=== PATIENT | female | born 1990 | race Caucasian/White ===

== ENCOUNTER 2023-08-05 23:07 | Emergency (ER) | payer MEDICAID ==
[~2023-08-05] VITALS: Ht 157.5 cm; Wt 79.9 kg
[2023-08-06] LABS: BASOPHILS # (AUTO) 0.1 X10'3 (0-0.2); BASOPHILS % (AUTO) 0.6 % (0-1); EOSINOPHILS # (AUTO) 0.2 X10'3 (0-0.9); EOSINOPHILS % (AUTO) 1.3 % (0-6); HEMATOCRIT 37.1 % (35.0-45.0); HEMOGLOBIN 12.6 g/dl (12.0-16.0); LYMPHOCYTES # (AUTO) 4.2 X10'3 (1.1-4.8); LYMPHOCYTES % (AUTO) 28.4 % (21-51); MEAN CORPUSCULAR HEMOGLOBIN 27.6 PG (27.0-31.0); MEAN CORPUSCULAR HGB CONC 33.9 g/dL (33.0-36.5); MEAN CORPUSCULAR VOLUME 81.4 FL (78-98); MONOCYTES # (AUTO) 0.7 X10'3 (0-0.9); MONOCYTES % (AUTO) 4.7 % (2-12); NEUTROPHILS # (AUTO) 9.6 X10'3 (1.8-7.7); PLATELET COUNT 181 X10'3 (140-440); RED BLOOD COUNT 4.55 X10'6 (4.20-5.60); RED CELL DISTRIBUTION WIDTH 13.4 % (11.5-14.5); WHITE BLOOD COUNT 14.7 X10'3 (4.5-11.0)
[2023-08-06 00:13] LABS: ALANINE AMINOTRANSFERASE 22 U/L (12-78); ALBUMIN 3.9 G/DL (3.4-5.0); ALKALINE PHOSPHATASE 54 IU/L (46-116); ANION GAP 11 (8-16); ASPARTATE AMINO TRANSFERASE 8 U/L (10-37); BILIRUBIN,TOTAL 0.2 MG/DL (0.1-1.0); BLOOD UREA NITROGEN 13 MG/DL (7-18); CALCIUM 9.3 MG/DL (8.5-10.1); CHLORIDE 104 MMOL/L (99-107); CREATININE 0.62 MG/DL (0.40-0.90); GLUCOSE 88 MG/DL (70-104); LIPASE 26 U/L (16-77); POTASSIUM 3.8 MMOL/L (3.5-5.1); SODIUM 142 MMOL/L (135-145); TOTAL CARBON DIOXIDE 26.7 MMOL/L (24-32); TOTAL PROTEIN 7.9 G/DL (6.4-8.2); eCRCL 104 ML/MIN; eGFR > 90 ML/MIN
[2023-08-06] MEDS: morphine 4 MG/ML inj SYRINge IV ONE (00:23)
[2023-08-06] MEDS: ondansetron/PF 4mg/2ml inj IV ONE (00:23)
[2023-08-06] MEDS: normal saline 1000ml 1,000 ML IV ONE (00:27)
[2023-08-06 01:34] LABS: URINE HCG NEGATIVE (NEG)
[2023-08-06 02:57] LABS: BILIRUBIN,URINE NEGATIVE (Neg); CLARITY,URINE SLIGHTLY CLOUDY (Clear); COLOR,URINE YELLOW (Yellow); GLUCOSE, URINE NEGATIVE (Neg); KETONES,URINE NEGATIVE (Neg); LEUKOCYTE ESTERASE ,URINE NEGATIVE (Neg); NITRITES, URINE NEGATIVE (Neg); OCCULT BLOOD,URINE NEGATIVE (Neg); PROTEIN,URINE NEGATIVE (Neg); UROBILINOGEN,URINE 0.2 E.U/dL (0.2-1.0)
[2023-08-06 02:59] LABS: UA COLLECTION TYPE CLN CATCH MIDSTREAM
[2023-08-06 03:14] LABS: MUCUS STRANDS MANY /LPF (Neg); RBC,URINE NONE SEEN /HPF (0-2); SQUAMOUS EPITHELIAL CELL,UR MANY /LPF (FEW); WBC,URINE 0-4 /HPF (0-4)
[2023-08-06 03:15] LABS: BACTERIA,URINE 2+ /HPF (Neg)
[2023-08-06] MEDS ORDERED: HYDR-3965 PO ×2 (03:33→03:35)
[2023-08-06] MEDS ORDERED: LANS30TA4 PO (03:33)
[2023-08-06] MEDS ORDERED: SULF1TAB49 PO (03:35)
[2023-08-06 03:53] VITALS: BP 103/65; PULSE 82; RESP 16; TEMP 98; O2SAT 99
== END 2023-08-06 03:50 | disposition home or self-care (01) ==
LOC: ER 23:08
DX: K29.70 Gastritis, unspecified, without bleeding (principal); A09 Infectious gastroenteritis and colitis, unspecified; E86.0 Dehydration
CPT/HCPCS: 36415; 74176; 80053; 81001; 81025; 83690; 85025; 96374; 96375; 99285; J2270; J2405; J7030

== ENCOUNTER 2023-08-18 22:05 | Emergency (ER) | payer MEDICAID ==
[~2023-08-18] VITALS: Ht 157.5 cm; Wt 80.1 kg
[~2023-08-18 22:05] MED LIST: HYDR-3965 PO; LANS30TA4 PO
[2023-08-18 22:09] VITALS: BP 133/70; PULSE 87; RESP 16; TEMP 98; O2SAT 100
[2023-08-19] MEDS ORDERED: NAPR-56 PO (01:05)
[2023-08-19] MEDS ORDERED: LIDO1ADH77 TD (01:05)
[2023-08-19] MEDS ORDERED: ACET-812 PO (01:05)
[2023-08-19] MEDS: ibuprofen tablet 400 MG TABLET PO ONE (01:19)
[2023-08-19] MEDS: acetaminophen 325mg tablet PO ONE (01:20)
== END 2023-08-19 01:20 | disposition home or self-care (01) ==
LOC: ER 22:06
DX: S60.212A Contusion of left wrist, initial encounter (principal); X58.XXXA Exposure to other specified factors, initial encounter; Y93.89 Activity, other specified; Y92.89 Other specified places as the place of occurrence of the external cause; Y99.8 Other external cause status
CPT/HCPCS: 73110; 99284; A6449

== ENCOUNTER 2024-11-12 06:36 | Emergency (ER) | payer MEDICAID ==
[~2024-11-12] VITALS: Ht 157.5 cm; Wt 69.2 kg
[~2024-11-12 06:36] MED LIST changes: +ACET-812 PO; -HYDR-3965 PO; +LIDO1ADH77 TD
[2024-11-12 07:14] LABS: BASOPHILS # (AUTO) 0.1 X10'3 (0-0.2); BASOPHILS % (AUTO) 0.7 % (0-1); EOSINOPHILS # (AUTO) 0.2 X10'3 (0-0.9); EOSINOPHILS % (AUTO) 1.6 % (0-6); HEMATOCRIT 39.7 % (35.0-45.0); HEMOGLOBIN 13.3 g/dl (12.0-16.0); LYMPHOCYTES # (AUTO) 2.7 X10'3 (1.1-4.8); LYMPHOCYTES % (AUTO) 28.4 % (21-51); MEAN CORPUSCULAR HEMOGLOBIN 27.9 PG (27.0-31.0); MEAN CORPUSCULAR HGB CONC 33.6 g/dL (33.0-36.5); MEAN CORPUSCULAR VOLUME 83.1 FL (78-98); MEAN PLATELET VOLUME 7.5 FL (7.4-10.4); MONOCYTES # (AUTO) 0.5 X10'3 (0-0.9); MONOCYTES % (AUTO) 5.6 % (2-12); NEUTROPHILS % (AUTO) 63.7 % (42-75); PLATELET COUNT 187 X10'3 (140-440); RED BLOOD COUNT 4.77 X10'6 (4.20-5.60); RED CELL DISTRIBUTION WIDTH 12.8 % (11.5-14.5); WHITE BLOOD COUNT 9.4 X10'3 (4.5-11.0)
[2024-11-12 07:40] LABS: ALANINE AMINOTRANSFERASE 15 U/L (12-78); ALBUMIN 3.9 G/DL (3.4-5.0); ALBUMIN/GLOBULIN RATIO 1.1 (1.1-1.5); ALKALINE PHOSPHATASE 46 IU/L (46-116); ANION GAP 10 (8-16); ASPARTATE AMINO TRANSFERASE 15 U/L (10-37); BILIRUBIN,TOTAL 0.3 MG/DL (0.1-1.0); BLOOD UREA NITROGEN 8 MG/DL (7-18); BUN/CREATININE RATIO 10.7 (10.0-20.0); CALCIUM 8.5 MG/DL (8.5-10.1); CHLORIDE 105 MMOL/L (99-107); CREATININE 0.75 MG/DL (0.40-0.90); GLUCOSE 101 MG/DL (70-104); LIPASE 33 U/L (16-77); POTASSIUM 3.7 MMOL/L (3.5-5.1); SODIUM 141 MMOL/L (135-145); TOTAL CARBON DIOXIDE 26.1 MMOL/L (24-32); TOTAL PROTEIN 7.5 G/DL (6.4-8.2); eCRCL 85 ML/MIN; eGFR 90 ML/MIN
[2024-11-12 08:42] LABS: BETA HCG,QUANTITATIVE < 1.0 mIU/ml
--- NOTE | 2024-11-12 09:26 | Physician Documentation ---
History of Present Illness Chief Complaint: Complications Stated Complaint: COMPLICATIONS Time Seen by MD: 09:07 OK to notify your PCP?: Yes Primary Medical Doctor: NONE Source: patient, RN/MD, RN notes reviewed, old records Mode of Arrival: POV Exam Limitations: no limitations HPI 34 year old female who is and a history if ovarian cysts presents to the emergency department for complaints of complications. She states that one moth ago she tested positive on a home chary. She later reports some light spotting. She states that last night she has been having intense cramping and heavier bleeding. Of note she states that she typically has regular periods that are moderate in nature and begin on the 10th of each month. Patient denies any other associated symptoms at this time. Patient denies any other alleviating or exacerbating factors Medication Reconciliation Allergies: Coded Allergies: No Known Allergies (Unverified , 11/12/24) Scheduled Acetaminophen (Tylenol Extra Strength), 2 TABLET PO Q6H Cephalexin*Monohydrate* (Keflex*), 1 TAB PO Q8H Dicyclomine Hcl* (Bentyl*), 1 CAP PO Q8H Lansoprazole (Prevacid), 1 TAB PO DAILY Lidocaine (Lido Tre), 4 APPLIC TD BID Past Medical History Past Medical History: No Pertinent History Smoking Status: Current some day smoker Alcohol Use: None Drug Use: none Review of Systems All Other Systems at this time: Reviewed and Negative ROS As stated above in the HPI, otherwise all systems are reviewed and negative. Physical Exam Vital Signs: RN Vital Signs have been reviewed: Yes, Temperature: 97.6, Source: Temporal, Heart Rate: 91, Respiratory Rate: 15, BP: 114/74, Pulse Oximetry: 98, Weight: 69.200 Oxygen Flow Rate: 0 Pulse Oximetry Reflects: adequate oxygenation Physical Exam General: The patient is well developed, well nourished, nontoxic appearing and is in no acute distress. Skin: [place], warm and dry with no rashes. HEENT: Head was normocephalic and atraumatic. Eyes - pupils equal, round, reactive to light and accommodation. Extraocular movements were intact. Conjunctivae were nonicteric. Ears - bilateral tympanic membranes were normal. The mouth and oropharynx were clear with moist mucous membranes. There were no pharyngeal exudates or erythema. Neck: Supple and nontender. There was no jugular venous distention, lymphadenopathy, thyromegaly or masses. Chest: Clear to auscultation bilaterally without wheezes, rales or rhonchi. No accessory muscle use. No dullness to percussion. Heart: Rate regular and rhythmic. S1, S2. No murmurs. Palpation of the chest wall was normal. No rubs or thrills. Abdomen: Distended abdomen, high pitched and hyperactive bowel sounds with diffuse abdominal pain. No guarding or rebound. No hepatosplenomegaly or palpable masses. Extremities: No cyanosis, clubbing or edema. The patient moves all extremities. Pulses were equal and symmetric. Neurologic: Cranial nerves II-XII were intact. Sensation was intact to light touch throughout. Motor strength was 5/5 in all four extremities. Deep tendon reflexes were intact in both upper and lower extremities. Psychologic: The patient was oriented to person, place and time. The patient demonstrated appropriate judgement and insight. Progress Results/Orders Reviewed/noted all lab results: Yes Results/Orders Orders - GILBERTO PEREIRA MD Urinalysis, Cult If Indicated (11/12/24 06:42) Hcg, Ur Ql (11/12/24 06:42) Completed Orders - GILBERTO PEREIRA MD Cbc/Diff (11/12/24 06:42) BMP (11/12/24 06:42) Lipase (11/12/24 06:42) CMP (11/12/24 06:42) Hcg Serum Qt (11/12/24 07:06) Vital Signs 11/12/24 11/12/24 11/12/24 06:38 07:11 08:21 Temp 97.6 97.6 97.6 Pulse 109 83 91 Resp 18 14 15 B/P (MAP) 138/86 120/72 (88) 114/74 (87) Pulse Ox 99 98 98 O2 Flow Rate 0 0 Laboratory Tests Test 11/12/24 07:06 White Blood Count 9.4 Red Blood Count 4.77 Hemoglobin 13.3 Hematocrit 39.7 Mean Corpuscular Volume 83.1 Mean Corpuscular Hemoglobin 27.9 Mean Corpuscular Hemoglobin Concent 33.6 Red Cell Distribution Width 12.8 Platelet Count 187 Mean Platelet Volume 7.5 Neutrophils (%) (Auto) 63.7 Lymphocytes (%) (Auto) 28.4 Monocytes (%) (Auto) 5.6 Eosinophils (%) (Auto) 1.6 Basophils (%) (Auto) 0.7 Neutrophils # (Auto) 6.0 Lymphocytes # (Auto) 2.7 Monocytes # (Auto) 0.5 Eosinophils # (Auto) 0.2 Basophils # (Auto) 0.1 CBC Comment Sodium Level 141 Potassium Level 3.7 Chloride Level 105 Carbon Dioxide Level 26.1 Anion Gap 10 Blood Urea Nitrogen 8 Creatinine 0.75 Estimated GFR/1.73 m2 90 BUN/Creatinine Ratio 10.7 Glucose Level 101 Calcium Level 8.5 Total Bilirubin 0.3 Aspartate Amino Transf (AST/SGOT) 15 Alanine Aminotransferase (ALT/SGPT) 15 Alkaline Phosphatase 46 Total Protein 7.5 Albumin 3.9 Globulin 3.6 Albumin/Globulin Ratio 1.1 Lipase 33 HCG Beta Subunit < 1.0 Chemistry Comments Re-Evaluation Re-Evaluation : Re-Evaluation: Improved Progress Patient was seen and examined. Patient is given reassurance. The patient was negative for her hCG. CBC was reassuring without any leukocytosis without any anemia. Chemistry was also within normal limits LFTs within normal limits. Beta hCG is negative urinalysis however did show positive UTI. Patient had large occult blood leukocyte esterase was trace RBCs 50-100 WBCs 5-10 with 3+ bacteria however patient is spotting and this most likely is more of a contaminant from vaginal bleeding. As far as the patient's abdominal pain she was given Bentyl as well as some lactulose. Patient also received fluid boluses. Cat scan and ultrasound were negative for any acute pathology no need for a D&C Continuous engine monitor interpretation shows sinus tachycardia heart rate 100s, abnormal, my interpretation. Pulse oximetry monitor interpretation shows normal oxygenation 99% room air, normal, my interpretation. EKG/XRAY/CT/US/VASC/MRI CT : Impression Exam: CT CT ABDOMEN PELVIS W/ IV CONTRAST History: ABD PAIN TECHNIQUE: Multiple contiguous axial CT images of the abdomen and pelvis were obtained with intravenous contrast. The images were reformatted to generate coronal and sagittal reconstructions. 100 cc of Omnipaque 350 contrast was injected intravenously. All CT scans at this medical facility are performed using dose modulation techniques as appropriate to a performed exam including the following:Automated exposure control was utilized; adjustment of the MA and/or KV according to patient size; and use of iterative reconstruction technique. Radiation Dose Information: CT Dose: CTDI volume is 13 mGy. Dose-length product is 647 mGy*cm Comparison: CT CT ABDOMEN PELVIS on DOS: 08/06/23 FINDINGS: The liver, gallbladder, pancreas, kidneys, adrenal glands, and spleen appear within normal limits. There is no evidence of abdominal lymphadenopathy. There is no free fluid or free air. The stomach grossly appears unremarkable. The small and large bowel loops demonstrate normal caliber and distribution. The appendix is not seen in the right lower quadrant abdomen. There is moderate amount of stool in the colon. The abdominal aorta and IVC appear within normal limits. The bladder appears within normal limits the degree of distention. Uterus appears unremarkable. There is no evidence of a pelvic mass or lymphadenopathy. There is no free fluid collection. Lung bases are clear. There is no acute osseous abnormality. IMPRESSION: 1. There is no acute process in the abdomen and pelvis. 2. Moderate amount of stool in the colon. HS:Y Electronically Signed by:GENE BLANCAS MD Date & Time: 11/12/24 1122 Ultrasound : Impression INDICATION: ABD PAIN TECHNIQUE: Multiple real-time grayscale transabdominal sonographic images along with color and duplex Doppler of the uterus and ovaries were obtained. COMPARISON: None FINDINGS: The uterus measures 10.0 x 4.6 x 6.3 cm. The endometrial stripe measures 0.3 cm. Right ovary measures 2.9 x 1.9 x 2.2 cm with normal Doppler color flow Left ovary measures 2.7 x 1.5 x 1.8 cm with normal Doppler color flow IMPRESSION: 1. Grossly unremarkable pelvic ultrasound. Electronically Signed by:NELSON SALSE MD Date & Time: 11/12/24 1034 Medical Decision Making Additional info obtained from: old records Differential Dx:Considerations: Include: -Complete, - Incomplete, -Inevitable, -Missed, -Threatened, Abruptio placentae, Appendicitis, Bowel obstruction, Cholangitis, Cholelithasis, Constipation, Diverticular disease, Esophageal rupture, Esophagitis, Gastritis/PUD, Gastroenteritis, GI hemorrhage, Hernia, Hepatitis, Inflammatory BD, Ischemic bowel, Ovarian cyst/torsion, Pancreatitis, PID, Porphyria, Trauma, intraabdominal, Urinary obstruction, Urinary tract infection, Urolithiasis, Other Departure Time of Disposition: 12:59 Disposition: 01 HOME / SELF CARE / HOMELESS Impression: Primary Impression: Abdominal pain Qualified Codes: R10.30 - Lower abdominal pain, unspecified Additional Impressions: UTI (urinary tract infection) Qualified Codes: N30.01 - Acute cystitis with hematuria Constipation Qualified Codes: K59.00 - Constipation, unspecified Condition: Stable Discharge Instructions: Urinary Tract Infection, Adult, [id number] Referrals: NO PRIMARY CARE PROVIDER (PCP) Prescriptions Cephalexin*Monohydrate* (Keflex*) 250 Mg Capsule 1 TAB PO Q8H for 7 Days, #21 TAB Prov: GILBERTO PEREIRA MD 11/12/24 Dicyclomine Hcl* (Bentyl*) 10 Mg Capsule 1 CAP PO Q8H for irritable bowel symptoms for 10 Days, #12 CAP Prov: GILBERTO PEREIRA MD 11/12/24 Education Educated: Patient Educated regarding: diagnosis, treatment, prognosis, need for follow up Signature Scribe Signature: Scribed for Gilberto Pereira MD by Avtar Olivier . 11/12/24 09:43 Attestation: The note accurately reflects work and decisions made by me.Gilberto Pereira MD 11/12/24 09:26 GILBERTO PEREIRA MD November 12, 2024 09:26 AVTAR MCCABE November 12, 2024 09:44
[2024-11-12] MEDS: normal saline 1000ML IV soln IVB ONE (09:57)
[2024-11-12] MEDS: morphine 2 MG/ML inj. syringe IV PRN (09:58)
[2024-11-12] MEDS ORDERED: iohexol 300mg/ml 100ml inj. ONE (10:22)
--- NOTE | 2024-11-12 10:37 | RADIOLOGY REPORT ---
INDICATION: ABD PAIN TECHNIQUE: Multiple real-time grayscale transabdominal sonographic images along with color and duplex Doppler of the uterus and ovaries were obtained. COMPARISON: None FINDINGS: The uterus measures 10.0 x 4.6 x 6.3 cm. The endometrial stripe measures 0.3 cm. Right ovary measures 2.9 x 1.9 x 2.2 cm with normal Doppler color flow Left ovary measures 2.7 x 1.5 x 1.8 cm with normal Doppler color flow IMPRESSION: 1. Grossly unremarkable pelvic ultrasound.
[2024-11-12 10:40] LABS: URINE HCG NEGATIVE (NEG)
[2024-11-12 10:41] LABS: BILIRUBIN,URINE NEGATIVE (Neg); CLARITY,URINE SLIGHTLY CLOUDY (Clear); COLOR,URINE YELLOW (Yellow); GLUCOSE, URINE NEGATIVE (Neg); KETONES,URINE NEGATIVE (Neg); LEUKOCYTE ESTERASE ,URINE TRACE (Neg); OCCULT BLOOD,URINE LARGE (Neg); PH,URINE 7.5 (4.8-8.0); PROTEIN,URINE 30 mg/dl (Neg); UROBILINOGEN,URINE 0.2 E.U/dL (0.2-1.0)
[2024-11-12 10:43] LABS: NITRITES, URINE NEGATIVE (Neg); UA COLLECTION TYPE CLN CATCH MIDSTREAM
[2024-11-12 10:48] LABS: BACTERIA,URINE 3+ /HPF (Neg); MUCUS STRANDS NONE SEEN /LPF (Neg); RBC,URINE 50-100 /HPF (0-2); SQUAMOUS EPITHELIAL CELL,UR MODERATE /LPF (FEW)
--- NOTE | 2024-11-12 11:25 | RADIOLOGY REPORT ---
Exam: CT CT ABDOMEN PELVIS W/ IV CONTRAST History: ABD PAIN TECHNIQUE: Multiple contiguous axial CT images of the abdomen and pelvis were obtained with intraveno us contrast. The images were reformatted to generate coronal and sagittal reconstructions. 100 cc of Omnipaque 350 contrast was injected intravenously. All CT scans at this medical facility are performed using dose modulation techniques as appropriate t o a performed exam including the following:Automated exposure control was utilized; adjustment of the MA and/or KV according to patient size; and use of iterative reconstruction technique. Radiation Dose Information: CT Dose: CTDI volume is 13 mGy. Dose-length product is 647 mGy*cm Comparison: CT CT ABDOMEN PELVIS on DOS: 08/06/23 FINDINGS: The liver, gallbladder, pancreas, kidneys, adrenal glands, and spleen appear within normal limits. There is no evidence of abdominal lymphadenopathy. There is no free fluid or free air. The stomach grossly appears unremarkable. The small and large bowel loops demonstrate normal caliber and distribution. The appendix is not seen in the right lower quadrant abdomen. There is moderate am ount of stool in the colon. The abdominal aorta and IVC appear within normal limits. The bladder appears within normal limits the degree of distention. Uterus appears unremarkable. There is no evidence of a pelvic mass or lymphadenopathy. There is no free fluid collection. Lung bases are clear. There is no acute osseous abnormality. IMPRESSION: 1. There is no acute process in the abdomen and pelvis. 2. Moderate amount of stool in the colon. HS:Y
[2024-11-12] MEDS ORDERED: CEPH250T PO (12:56)
[2024-11-12] MEDS ORDERED: DICY10CA88 PO (12:56)
[2024-11-12] MEDS: lactulose 20gm/30ml cup PO ONE (13:07)
[2024-11-12] MEDS: dicyclomine 10 MG capsule PO ONE (13:07)
[2024-11-12] MEDS: normal saline 1000ML IV soln IV ONE (13:07)
[2024-11-12] MEDS: CefTRIAXone 2gm/D5W 50ml BAG 50 ML IV ONE (13:07)
[2024-11-12] MEDS: bisacodyl 10mg suppository rectal RC STA (13:07)
[2024-11-12 14:13] VITALS: BP 119/95; PULSE 78; RESP 15; TEMP 97.6; O2SAT 100
== END 2024-11-12 14:38 | disposition home or self-care (01) ==
LOC: ER 06:37
DX: O26.891 Other specified pregnancy related conditions, first trimester (principal); K59.00 Constipation, unspecified; N39.0 Urinary tract infection, site not specified; R10.84 Generalized abdominal pain; F17.200 Nicotine dependence, unspecified, uncomplicated; Z3A.01 Less than 8 weeks gestation of pregnancy; Z79.899 Other long term (current) drug therapy
CPT/HCPCS: 36415; 74177; 76856; 80053; 81001; 81025; 83690; 84702; 85025; 87088; 93976; 96361; 96365; 96375; 99285; J0696; J2270; J7030; Q9967; 87077; 87186